=== PATIENT | female | born 1955 | race Caucasian/White ===

== ENCOUNTER 2018-03-12 09:30 | Outpatient (CLI) | payer OTHER, SELFPAY ==
--- NOTE | 2018-03-12 10:22 | W.PREOPHP ---
Date of service: 03/12/18 Assessment and Plan (1) Rotator cuff tendonitis: Current visit: Yes Status: Chronic Left rotator cuff tendinitis Plan: Left shoulder arthroscopy with possible manipulation. Details of surgery were discussed with patient as well as risks and pertinent anatomy, all questions were answered. History of Present Illness Chief Complaint: Left shoulder injury Narrative: Nia comes in today for left shoulder pain. She states that she had an injury back in July where she slipped and fell on the ice landing on her left shoulder. Since then she has continued to have left shoulder pain and decreased range of motion. She has trouble lifting her arm away from her body due to pain. She does have pain as well when she sleeps, and also keeps her from sleep. She has tried conservative treatment including injections and physical therapy. She states that physical therapy in fact made the left shoulder pain worse. Nia then got an MRI of the left shoulder which did show some tendinitis of the rotator cuff, did not show any nisreen tears of the rotator cuff. At this point since Nia has tried and failed conservative treatment Dr. Vee suggests a left shoulder arthroscopy with possible manipulation. Nia agrees with this plan and is anxious to proceed. Pertinent Surgical Information Patient states that she has had her umbilical hair hernia surgery here at [facility], as well as her tonsillectomy. She states that she does wake up from anesthesia with severe nausea and vomiting. Review of Systems Constitutional Denies fatigue and Denies fever(s) ENT Denies dizziness and Denies sore throat Cardiovascular Denies chest pain, Denies irregular heart rhythm, Denies palpitations and Denies dyspnea on exertion Respiratory Denies cough and Denies dyspnea on exertion Gastrointestinal Denies abdominal pain, Denies hematochezia and Denies nausea Genitourinary Denies hematuria and Denies dysuria Neurologic Denies dizziness Endocrine Denies fatigue and Denies palpitations [facility] Medical History Anxiety (Chronic) Essential hypertension Insomnia Social History Smoking/Tobacco Use Status: Former Tobacco Use how long ago did patient quit smokin years Surgical History Anal papilla excision BILAT WRIST Colonoscopy - IV Sedation Hernia Repair, Incisional Sigmoidoscopy Tonsillectomy (05/22/17) Meds Home Medications Medication Instructions Recorded Confirmed Type black cohosh root extract 40 mg PO DAILY 08/31/12 03/12/18 History evening primrose oil 500 mg PO DAILY 08/31/12 03/12/18 History sertraline 100 mg PO DAILY tab-cap 08/31/12 03/12/18 History trazodone 300 mg PO HS tab-cap 08/31/12 03/12/18 History uocuqkhm-tjsq-ugsnmr-hyalur ac 1 tab PO DAILY 10/01/12 03/12/18 History [Joint Support] vitamin B complex 1 ea PO DAILY 01/02/13 03/12/18 History calcium carbonate 500 mg PO DAILY 02/04/14 03/12/18 History spironolactone 25 mg PO DAILY tab-cap 04/24/17 03/12/18 History L.acidoph, paracasei,B. lactis 1 ea PO DAILY 05/15/17 03/12/18 History polyethylene glycol 3350 17 gm PO PRN PRN 05/15/17 03/12/18 History gabapentin 300 mg PO HS 05/22/17 03/12/18 History Allergies Allergy/AdvReac Type Severity Reaction Status Date / Time lorazepam Allergy Severe HYPERACTIVITY, Unverified 03/12/18 09:45 HALLUATIONS latex Allergy Mild RASH Unverified 03/12/18 09:45 amoxicillin trihydrate Allergy VOMITING Unverified 03/12/18 09:45 [From Augmentin] potassium clavulanate Allergy VOMITING Unverified 03/12/18 09:45 [From Augmentin] ANTIHISTAMINES - MULTIPLE AdvReac Mild HYPER Uncoded 03/12/18 09:45 Exam [facility] Head: normocephalic and atraumatic General nose exam: no nasal discharge Throat: uvula midline, no uvular edema and other (soft palate rises symetrically, no erythema) Eyes Conjunctivae: conjunctivae normal Sclera: sclerae normal Pupils: PERRL Resp Effort & Inspection: normal respiratory effort Auscultation: clear to auscultation bilaterally and no wheezes Cardio Rate: regular rate Rhythm: regular rhythm Heart Sounds: S1 normal, S2 normal and no murmurs GI Palpation: soft, no hepatosplenomegaly and nontender Auscultation: normal bowel sounds
--- NOTE | 2018-03-12 10:48 | HPE_ITS ---
Date of service: 03/12/18 Assessment and Plan (1) Rotator cuff tendonitis: Current visit: Yes Status: Chronic Left rotator cuff tendinitis Plan: Left shoulder arthroscopy with possible manipulation. Details of surgery were discussed with patient as well as risks and pertinent anatomy, all questions were answered. History of Present Illness Chief Complaint: Left shoulder injury Narrative: Nia comes in today for left shoulder pain. She states that she had an injury back in July where she slipped and fell on the ice landing on her left shoulder. Since then she has continued to have left shoulder pain and decreased range of motion. She has trouble lifting her arm away from her body due to pain. She does have pain as well when she sleeps, and also keeps her from sleep. She has tried conservative treatment including injections and physical therapy. She states that physical therapy in fact made the left shoulder pain worse. Nia then got an MRI of the left shoulder which did show some tendinitis of the rotator cuff, did not show any nisreen tears of the rotator cuff. At this point since Nia has tried and failed conservative treatment Dr. Vee suggests a left shoulder arthroscopy with possible manipulation. Nia agrees with this plan and is anxious to proceed. Pertinent Surgical Information Patient states that she has had her umbilical hair hernia surgery here at [facility], as well as her tonsillectomy. She states that she does wake up from anesthesia with severe nausea and vomiting. Review of Systems Constitutional Denies fatigue and Denies fever(s) ENT Denies dizziness and Denies sore throat Cardiovascular Denies chest pain, Denies irregular heart rhythm, Denies palpitations and Denies dyspnea on exertion Respiratory Denies cough and Denies dyspnea on exertion Gastrointestinal Denies abdominal pain, Denies hematochezia and Denies nausea Genitourinary Denies hematuria and Denies dysuria Neurologic Denies dizziness Endocrine Denies fatigue and Denies palpitations [facility] Medical History Anxiety (Chronic) Essential hypertension Insomnia Social History Smoking/Tobacco Use Status: Former Tobacco Use how long ago did patient quit smokin years Surgical History Anal papilla excision BILAT WRIST Colonoscopy - IV Sedation Hernia Repair, Incisional Sigmoidoscopy Tonsillectomy (05/22/17) Meds Home Medications Medication Instructions Recorded Confirmed Type black cohosh root extract 40 mg PO DAILY 08/31/12 03/12/18 History evening primrose oil 500 mg PO DAILY 08/31/12 03/12/18 History sertraline 100 mg PO DAILY tab-cap 08/31/12 03/12/18 History trazodone 300 mg PO HS tab-cap 08/31/12 03/12/18 History mwqumiyk-alpm-cwmerr-hyalur ac 1 tab PO DAILY 10/01/12 03/12/18 History [Joint Support] vitamin B complex 1 ea PO DAILY 01/02/13 03/12/18 History calcium carbonate 500 mg PO DAILY 02/04/14 03/12/18 History spironolactone 25 mg PO DAILY tab-cap 04/24/17 03/12/18 History L.acidoph, paracasei,B. lactis 1 ea PO DAILY 05/15/17 03/12/18 History polyethylene glycol 3350 17 gm PO PRN PRN 05/15/17 03/12/18 History gabapentin 300 mg PO HS 05/22/17 03/12/18 History Allergies Allergy/AdvReac Type Severity Reaction Status Date / Time lorazepam Allergy Severe HYPERACTIVITY, Unverified 03/12/18 09:45 HALLUATIONS latex Allergy Mild RASH Unverified 03/12/18 09:45 amoxicillin trihydrate Allergy VOMITING Unverified 03/12/18 09:45 [From Augmentin] potassium clavulanate Allergy VOMITING Unverified 03/12/18 09:45 [From Augmentin] ANTIHISTAMINES - MULTIPLE AdvReac Mild HYPER Uncoded 03/12/18 09:45 Exam [facility] Head: normocephalic and atraumatic General nose exam: no nasal discharge Throat: uvula midline, no uvular edema and other (soft palate rises symetrically , no erythema) Eyes Conjunctivae: conjunctivae normal Sclera: sclerae normal Pupils: PERRL Resp Effort & Inspection: normal respiratory effort Auscultation: clear to auscultation bilaterally and no wheezes Cardio Rate: regular rate Rhythm: regular rhythm Heart Sounds: S1 normal, S2 normal and no murmurs GI Palpation: soft, no hepatosplenomegaly and nontender Auscultation: normal bowel sounds
== END 2018-03-12 09:50 ==
PROVIDERS: PCP Physician Assistant Medical; Visit Provider Student in an Organized Health Care Education/Training Program
DX: M75.102 Unspecified rotator cuff tear or rupture of left shoulder, not specified as traumatic (principal); M75.02 Adhesive capsulitis of left shoulder; Z01.818 Encounter for other preprocedural examination
CPT/HCPCS: NC

== ENCOUNTER 2018-03-15 06:23 | Day surgery (SDC) | payer OTHER, SELFPAY ==
[2018-03-15 06:29] VITALS: BP 146/82; PULSE 79; RESP 18; TEMP 36.1; O2SAT 98
[2018-03-15] MEDS: Lactated Ringers 1,000 ML 80 ML IV (07:05)
[2018-03-15] MEDS: Scopolamine 1 MG/3 DAYS PATCH TD (07:38)
[2018-03-15] MEDS: Bupivacaine LIPOSOME/PF 133 MG/10 ML VIAL IJ ×2 (08:25→09:23)
[2018-03-15] MEDS: Bupivacaine 0.5% Pres-Free 30 ML VIAL ×2 (08:25→09:22)
--- NOTE | 2018-03-15 10:14 | W.PM.DSUDISC ---
Discharge Plan Disposition Patient Disposition: HOME Condition: Good Discharge Details Reason For Visit: (L) RTC TENDONITITIS,ADHESIVE CAPSULITIS Attending Provider: Jaquan Vee Primary Care Provider: Monster Rocha Home Meds and New Rx's Prescriptions: New acetaminophen 500 mg capsule 1,000 mg PO Q8H PRN (Reason: pain) Qty: 90 RF: 0 ibuprofen 600 mg tablet 600 mg PO TID PRN (Reason: pain) Qty: 90 RF: 3 oxycodone 5 mg tablet 5 mg PO Q4H Qty: 18 RF: 0 Continue evening primrose oil 500 MG capsule 500 mg PO DAILY RF: 0 sertraline 100 MG tablet 100 mg PO DAILY RF: 0 trazodone 100 MG tablet 300 mg PO HS RF: 0 black cohosh root extract 40 MG capsule 40 mg PO DAILY RF: 0 vitamin B complex 1 EACH capsule 1 ea PO DAILY RF: 0 spironolactone 25 MG tablet 25 mg PO DAILY RF: 0 qeijsoik-klmi-cilvtw-hyalur ac [Joint Support] 1 EACH capsule 1 tab PO DAILY RF: 0 calcium carbonate 500 MG tablet,chewable 500 mg PO DAILY RF: 0 polyethylene glycol 3350 17 GM powder in packet 17 gm PO PRN PRNRF: 0 L.acidoph, paracasei,B. lactis 1 EACH capsule 1 ea PO DAILY RF: 0 gabapentin 100 MG capsule 300 mg PO HS RF: 0 Discharge Instructions Additional Instructions: Start moving as soon as possible, beginning with pendulums and then wall and table slides. You should start PT on Monday unless pain is too much. You may wear the abduction pillow part of your sling for comfort but is not necessary. Stand Alone Forms: Mariusz Shoulder Arthro Equipment/Supplies: Sling Activity:: Activity as Tolerated Remove Dressings/Wound Care:: 72 hours Shower/Bathe:: 72 hours Discharge Orders Discharge Orders: Discharge Order (Routine); Ordered 03/15/18 Ordered By: Jaquan Vee DS: Diagnosis Discharge Diagnosis (1) Left rotator cuff tear: Status: Acute (2) AC (acromioclavicular) arthritis: Status: Acute
[2018-03-15 10:29] VITALS: BP 129/63; PULSE 72; RESP 16; TEMP 36.6; O2SAT 97
[2018-03-15 10:34] VITALS: BP 140/72; PULSE 69; RESP 16; TEMP 36.6; O2SAT 98
[2018-03-15 10:39] VITALS: BP 144/78; PULSE 71; RESP 16; TEMP 36.5; O2SAT 98
[2018-03-15 10:54] VITALS: BP 139/74; PULSE 65; RESP 14; TEMP 36.4; O2SAT 98
[2018-03-15 11:44] VITALS: BP 140/81; PULSE 66; RESP 16; TEMP 36.7; O2SAT 97
--- NOTE | 2018-03-15 21:18 | W.PM.OP ---
Date of service: 03/15/18 Time of Service: :18 Operative Note DATE OF PROCEDURE: 03/15/18 PRE-OP DIAGNOSIS: Left Rotator Cuff Tendinitis, Adhesive Capsulitis, AC Arthritis POST-OP DIAGNOSIS: other (Partial left bursal-sided rotator cuff tear, adhesive capsulitis, and AC arthritis) PROCEDURE: Left distal clavicle excision, extensive debridement of labrum, rotator cuff, and subacromial bursa, and subacromial decompression. SURGEON: Jaquan Vee PATIENT RELATIONS LIAISON: Francine Velazquez ANESTHESIA: GETA and regional ESTIMATED BLOOD LOSS: 10 PATHOLOGY: none sent COMPLICATIONS: None Patient was transported to: PACU Patient's condition: stable Indications: Pat is a 63-year-old who has had persistent left shoulder pain. She has tried conservative treatment options including physical therapy, anti-inflammatories, and injections. However, she continues she also showed I reviewed the risk of the procedure to include bleeding, infection, pain, stiffness, damage to nerves and vessels, weakness. Despite these risks, she elects to proceed. Findings: There is notable arthritis of the distal clavicle. A dorsal osteophyte was also seen. A 1 cm resection wedge was made. There is also arthritic changes seen within the anterior glenohumeral joint. This is primarily of the glenoid component. There were grade 3 changes in the anterior glenoid. There is some notable disruption of the anterior labrum from about 9 to 11:00. Otherwise the labrum was relatively intact. There is some minimal inflammation seen at the biceps anchor but no tearing or lift off of the superior labrum. The articular sided rotator cuff was inspected and showed no tearing. Biceps tendon has some minor inflammation along its course but no tearing. The subacromial space there was a large bursa. The bursal sided rotator cuff was inspected and did show an area approximately 6 mm in width and that was torn at the posterior margin of the supraspinatus. It was torn for a width of about 4-5 mm. This was debrided down. Procedure Description: Pat was greeted in the preoperative holding area. Her identity was confirmed and the correct site was identified and marked. Consent was reviewed with the patient and signed. History and physical was updated. She was first taken back to the PACU where an interscalene regional block was administered. Following the regional block, she was taken to the operating room. She is placed in the supine position. All bony prominences were well-padded. A general anesthetic was administered. She was then repositioned into the beachchair position. The head was kept in a neutral position with a foam head chopper. The left arm was prepped with ChloraPrep and draped in a standard fashion. Prophylactic antibiotics in the form of cefazolin were given. A timeout was performed for safe surgery. I first started with the distal clavicle excision. A 2-1/2 cm incision was made within Kee's lines overlying the AC joint. The skin was incised sharply. The deep tissue was dissected with electrocautery. The clavipectoral fascia was then longitudinally over the AC joint. The fascia was elevated subperiosteally. This exposed the distal clavicle. There is a large dorsal osteophyte seen. There is also arthritic change seen within the AC joint. Using oscillating saw a 1 cm wedge was resected from the distal clavicle. This is inspected. A rasp was used to smooth the inferior and posterior aspects. The wound was irrigated. The clavipectoral fascia was then closed with 0 Vicryl. The wound was thoroughly irrigated. Deeper tissues were closed with a 2-0 Vicryl. The skin was closed with 3-0 Monocryl. The surgical site was then injected with a mixture of 0.5% bupivacaine and 10 cc of Exparel. Attention was then turned to the arthroscopy portion of the case. Using a spinal needle through a standard posterior position the glenohumeral joint was insufflated with 20 cc of normal saline. A standard posterior portal was made. An arthroscope was inserted into the shoulder without difficulty and atraumatically. There is a lot of inflammation seen within the shoulder itself. The interval between the biceps tendon and the subscapularis was identified using a spinal needle anterior portal was made. A 6.5 mm cannula was inserted. Diagnostic arthroscopy was performed. This demonstrated some grade III chondromalacia in the anterior glenoid. There is also tearing of the anterior labrum. There is thickening of the rotator interval and the synovium in the anterior shoulder. There is inflammatory change seen around the biceps but no tearing. No tearing of the anchor of the labrum. The superior labrum was probed and did not elevate off the superior glenoid. There is no tearing of the subscapularis. No articular tearing of the supraspinatus or infraspinatus. The labrum was debrided anteriorly. The biceps was withdrawn into the wound and only showed some mild inflammatory changes. The anterior synovium was transected with electrocautery all the way to the 6 o'clock position. The rotator interval was fully opened with electrocautery. Attention was then turned to the subacromial portion of the case. Scope was removed from the good humeral joint and then inserted into the subacromial space. The inferior portion of the acromion was skeletonized with blunt cautery. This exposed the anterolateral spur and the CA ligament. The bursa was resected. There was dense bursa throughout the subacromial portion of the case. A full debridement was performed and the rotator cuff was inspected from anterior to posterior. It was noted in the posterior portion of supraspinatus tendon insertion on the tuberosity there is some partial tearing. This was debrided down to define anatomy which showed a partial bursal sided tear measuring approximately 6-7 mm in width and approximately 4-5 mm in depth. Given that it was less than half the footprint I did not perform a repair. Using a posterior slope technique the anterolateral corner of the acromion was raised in plane with the posterior slope of the acromion. The wounds and irrigated. The scope was removed from the shoulder. The wounds were closed with 4-0 Vicryl. They were dressed with Steri-Strips, gauze, ABD padding and Mediport tape. She is placed into a sling. In any case all counts are correct. She is transferred back to the PACU in stable condition.
== END 2018-03-15 12:35 | disposition home or self-care (01) ==
PROVIDERS: PCP Physician Assistant Medical; Visit Provider Student in an Organized Health Care Education/Training Program
PROC: (CPT 29805; principal; 2018-03-15 09:15)
PROC: (CPT 23700; 2018-03-15 09:15)
DX: M75.81 Other shoulder lesions, right shoulder (principal); M19.011 Primary osteoarthritis, right shoulder; M75.02 Adhesive capsulitis of left shoulder; M75.112 Incomplete rotator cuff tear or rupture of left shoulder, not specified as traumatic; I10 Essential (primary) hypertension
CPT/HCPCS: 23120; 29826; 76942; J0131; J0690; J1100; J1885; J2250; J2405; L3670

== ENCOUNTER 2018-06-21 08:20 | Outpatient (REF) | payer OTHER, SELFPAY ==
[2018-06-21 21:43] LABS: ALT 20 U/L (12-78); AST 14 U/L (15-37); Albumin 3.9 g/dL (3.4-5.0); Alkaline Phosphatase 93 U/L (46-116); Anion Gap 7.8 mmol/L (3-11); BUN 18 mg/dL (7-18); Bilirubin, Total 0.5 mg/dL (0.2-1.0); CO2 30.2 mmol/L (21.0-32.0); CREATININE 0.96 mg/dL (0.55-1.02); Calcium 8.9 mg/dL (8.5-10.1); Chloride 101 mmol/L (98-107); Cholesterol 220 mg/dL (50-200); Estimated GFR 58.89 (mL/min/1.73m2); Glucose 99 mg/dL (70-100); HDL Cholesterol 70 mg/dL (40-60); LDL CHOLESTEROL 120 mg/dL (<100); Potassium 4.2 mmol/L (3.5-5.1); Sodium 139 mmol/L (136-145); Total Protein 7.2 g/dL (6.4-8.2); Triglyceride 243 mg/dL (30-150)
== END 2018-06-21 08:40 ==
LOC: NCHCN 08:20
PROVIDERS: PCP Physician Assistant Medical; Visit Provider Physician Assistant Medical
DX: I10 Essential (primary) hypertension (principal)
CPT/HCPCS: 80053; 80061; 83721

== ENCOUNTER 2018-10-15 06:59 | Day surgery (SDC) | payer OTHER, SELFPAY ==
--- NOTE | 2018-10-15 06:50 | COLE_ITS ---
Date of service: 10/15/18 Time of Service: 08:05 Colonoscopy Report Date of procedure: 10/15/18 Pre-op diagnosis general: Colon Cancer Screening/ Hx of polyps Post-op diagnosis procedure note: other (cecal Polyps and ascending polyp) Procedure: Colonoscopy with polypectomy by cold forceps Surgeon: Sneha Voss Anesthesia proc note operative: other (General/ ASA 2/ Lion Patton, CERTIFIED APPLIANCE SERVICE TECHNICIAN) Estimated blood loss (mL): 3 Pathology: other (cecal polyp, ascending polyp) Complications: None Disposition: no change Indications: Mrs Wilkinson is a pleasant 63 year old who was seen in the office for a Screening Colonoscopy. Her last Colonoscopy was in 2012 and she was noted to have Hyperplastic polyps. Risks, benefits and complications have been reviewed. Complications include but are not limited to bleeding, pain, perforation, missed small lesion/polyp, sore throat, aspiration and adverse reaction to the medications. Questions were entertained and answered to their satisfaction and they wished to proceed. No guarantees were given or implied. Prep: Miralax/Dulcolax Procedure Start Time: 08:05 Procedure End Time: 08:33 Retraction Time: 20 minutes Findings: Sessile polyps in the cecum and ascending colon Procedure Description: After informed consent was obtained the patient was taken to the procedure room and placed in a left decubitous position. Monitors were applied and a time out was done. The patients name, date of , procedure, allergies to medications and metal in their body was reviewed. The patient was then sedated. Once sedated and comfortable a rectal exam was done. External exam was normal. Internal exam revealed a normal sphincter tone and no palpable masses. The scope was then introduced and retro-flexed. Hemorrhoidal skin tags were identified. No polyps or masses were noted. The scope was then advanced to the cecum without difficulty. The TI and appendiceal orifice were identified. The prep was adequate. The scope was then slowly retracted over 20 minutes back into the rectum. Polyps were removed in the cecum and ascending colon with cold forceps. The scope was removed and the patient was woken up and taken back to Same day surgery in stable condition. The patient tolerated the procedure well and there were no immediate complications. Follow up: The patient should follow up in 3-5 years unless they develop changes in bowel habits or other new gastrointestinal complaints.
--- NOTE | 2018-10-15 06:53 | W.PM.DSUDISC ---
Discharge Plan Disposition Patient Disposition: HOME Condition: Good Discharge Details Reason For Visit: Colon Cancer Screening Attending Provider: Sneha Voss Primary Care Provider: Monster Rocha Home Meds and New Rx's Prescriptions: Continued albuterol sulfate [ProAir HFA] 90 mcg/actuation HFA aerosol inhaler 2 puff IH Q6H PRNRF: 0 evening primrose oil 500 MG capsule 500 mg PO DAILY RF: 0 sertraline 100 MG tablet 100 mg PO DAILY RF: 0 trazodone 100 MG tablet 300 mg PO HS RF: 0 black cohosh root extract 40 MG capsule 40 mg PO DAILY RF: 0 vitamin B complex 1 EACH capsule 1 ea PO DAILY RF: 0 spironolactone 25 MG tablet 25 mg PO DAILY RF: 0 hshmzfzc-dufc-kzbvkk-hyalur ac [Joint Support] 1 EACH capsule 1 tab PO DAILY RF: 0 calcium carbonate 500 MG tablet,chewable 500 mg PO DAILY RF: 0 gabapentin 100 MG capsule 300 mg PO HS RF: 0 Discontinued polyethylene glycol 3350 17 gram/dose powder 238 g PO ONCE Qty: 238 RF: 0 bisacodyl [Dulcolax (bisacodyl)] 5 mg tablet,delayed release (DR/EC) 5 mg PO ONCE Qty: 4 RF: 0 No Action polyethylene glycol 3350 17 GM powder in packet 17 gm PO PRN PRNRF: 0 Discharge Instructions Instructions: Colonoscopy (DC), Colorectal Polyps (DC), Hemorrhoidectomy (DC), Hemorrhoids (DC) Additional Instructions: Findings: Hemorrhoidal skin tags 2 polyps Follow up: 3-5 years Please call if you develop: fevers >101.5 Nausea or Vomiting Abdominal pain that is not transient DAY SURGERY UNIT POST COLONOSCOPY INSTRUCTIONS 1. Because there will be medication in your system for the next 24 hours, you may feel a little sleepy. Your coordination will be affected. Therefore: a. Do not drive or operate dangerous equipment for 24 hours. b. Do not drink alcohol beverages for 24 hours (not even beer). c. Plan to go home and rest for the day. 2. Generally there are no restrictions on your activity after a day or so has gone by, but you may feel a bit fatigued for a few days. 3 After you arrive home you may have a light meal and return to a normal diet as you can tolerate it without feeling sick to your stomach. 4. After surgery, you may feel pain or discomfort. This should be only transient, but if it persists please contact your doctor. 5. If there are any questions regarding the findings of your procedure, please feel free to contact your doctor. 6. If you are unable to contact your doctor with a problem, contact the hospital at [phone]. 7. Continue all your regular medications unless directed otherwise. I understand the above instructions and have no questions. Signature of Patient or Responsible Adult Escort Date/Time Name of Responsible Adult Escort Signature of Nurse Date/Time Referrals: Sneha Voss MD [ [facility] STAFF PHYSICIAN] - (as needed to discuss internal hemorrhoid removal if patient wants) Activity:: Activity as Tolerated Diet:: As Tolerated Discharge Orders Discharge Orders: Discharge Order (Routine); Ordered 10/15/18 Ordered By: Sneha Voss DS: Diagnosis Discharge Diagnosis (1) S/P colonoscopy: Status: Acute (2) Colorectal polyps: Status: Acute
[2018-10-15 07:29] VITALS: BP 147/85; PULSE 80; RESP 16; TEMP 36.5; O2SAT 98
[2018-10-15] MEDS: Lactated Ringers 1,000 ML 80 ML IV (07:49)
--- NOTE | 2018-10-15 08:16 | BOWEL_PTH ---
PATIENT: Nia Wilkinson LOC: [facility] U#:[id number] AGE/SX: 63/F ROOM: RE10/15/[address]: Sneha Voss MD : 1955 BED: DIS: 10/15/2018 SPEC #: [id number] RECD: 10/15/18 12:46 STATUS: SHAWN REQ #: [id number] BRET: 10/15/18 08:[address]: Sneha Voss DEPT: Surgical Specimen RECD BY: Vera Aggarwal ENTERED: 10/15/18 12:46 SP TYPE: Bowel OTHR DR: Monster Rocha Tissues: 1 - BIOPSY BOWEL 2 - BIOPSY BOWEL Procedures: GROSS AND MICRO LEVEL 4 Comments: [id number]
[2018-10-15 09:10] VITALS: BP 140/86; PULSE 61; RESP 16; TEMP 36.4; O2SAT 100
== END 2018-10-15 09:40 | disposition home or self-care (01) ==
LOC: SUR 06:59
PROVIDERS: PCP Physician Assistant Medical; Visit Provider Surgery
PROC: 0DJD8ZZ Inspection of Lower Intestinal Tract, Via Natural or Artificial Opening Endoscopic (ICD-10-PCS; CPT 45378; principal; 2018-10-15 08:00)
DX: Z12.11 Encounter for screening for malignant neoplasm of colon (principal); D12.0 Benign neoplasm of cecum; K63.5 Polyp of colon; Z87.19 Personal history of other diseases of the digestive system; I10 Essential (primary) hypertension
CPT/HCPCS: 45380; 88305

== ENCOUNTER 2018-11-27 21:59 | Outpatient (REF) | payer OTHER, SELFPAY ==
[2018-11-29 13:05] LABS: Specimen Description VAGINAL LESION; Varicella Zoster DNA Result Negative
[2018-11-29 13:09] LABS: HSV 1 DNA Result Negative; HSV 2 DNA Result Negative; Specimen Description VAGINAL LESION
== END 2018-11-27 22:19 ==
LOC: NCHCN 21:59
PROVIDERS: PCP Physician Assistant Medical; Visit Provider Nurse Practitioner Family
DX: N89.8 Other specified noninflammatory disorders of vagina (principal); Z11.59 Encounter for screening for other viral diseases
CPT/HCPCS: 87252; 87529; 87798

== ENCOUNTER 2019-03-06 14:54 | Outpatient (REF) | payer OTHER, SELFPAY ==
--- NOTE | 2019-03-06 09:30 | PAPFT_PTH ---
PATIENT: Nia Wilkinson LOC: [facility] #:[id number] AGE/SX: 63/F ROOM: RE03/06/[address]: Monster Rocha : 1955 BED: DIS: 03/06/2019 SPEC #: [id number] RECD: 03/07/19 12:29 STATUS: SHAWN RESujey #: [id number] BRET: 03/06/19 09:[address]: Monster Rocha DEPT: [facility] Cytology RECD BY: Vera Aggarwal Tissues: 1 - CX/ENDOCX FOR PAP SMEARS Procedures: PAP THIN PREP/UVM Screening HPV DNA PROBE Comments: [id number]
== END 2019-03-06 15:14 ==
LOC: NCHCN 14:54
PROVIDERS: PCP Physician Assistant Medical; Visit Provider Physician Assistant Medical
DX: Z12.4 Encounter for screening for malignant neoplasm of cervix (principal); Z11.51 Encounter for screening for human papillomavirus (HPV)
CPT/HCPCS: 88142; 87624

== ENCOUNTER 2019-04-03 01:27 | Outpatient (CLI) | payer OTHER, SELFPAY ==
--- NOTE | 2019-04-03 10:46 | DI.RAD_ITS ---
EXAM: XR KNEE LT 3V AP,LAT,RUDY INDICATION: BILATERAL KNEE PAIN, M25.569. COMPARISON: XR KNEE RT 3V AP,LAT,RUDY from 04/03/2019 TECHNIQUE: 2D digital imaging was performed. FINDINGS: Bony structures are normally mineralized. Joint space is intact. There is no evidence of a joint effu tarah and nothing to suggest a fracture or dislocation.
--- NOTE | 2019-04-03 10:47 | DI.RAD_ITS ---
EXAM: XR KNEE RT 3V AP,LAT,RUDY INDICATION: BILATERAL KNEE PAIN, M25.569. COMPARISON: LEFT KNEE 3 VIEW COMPLETE from 04/24/2017 TECHNIQUE: 2D digital imaging was performed. FINDINGS: The bony structures are normally mineralized. There may be slight narrowing of the tibiofemoral joint . Minimal periarticular hypertrophic spurring is apparent. There is no evidence of a joint effusion. IMPRESSION: Mild DJD is demonstrated.
--- NOTE | 2019-04-03 11:42 | DI.MAMMO_ITS ---
EXAM: MAMMO SCREENING CLINICAL HISTORY: SCREENING, HEALTH MAINTENANCE EXAM, Z00.8. TECHNIQUE: Mammograms were interpreted according to the usual protocol including computer analysis w [employer] CAD system, tomosynthesis and C-view imaging. FINDINGS: The breasts are heterogeneously dense. No dominant mass or clumped microcalcification is identified i n either breast. Current examination is compared with previous examinations including May 2017 a nd there has been no gross interval change in appearance in comparison with previous studies. IMPRESSION: No specific evidence of malignancy at this time. Routine screening examinations are suggested at year ly intervals due to the family history of breast carcinoma. Category 1. Breast density, category C. BI-RADS Cat 1 - Negative. Breast Density - Category C - Heterogeneously dense.
== END 2019-04-03 01:47 ==
PROVIDERS: PCP Physician Assistant Medical; Visit Provider Physician Assistant Medical
DX: M25.561 Pain in right knee (principal); M25.562 Pain in left knee; M17.11 Unilateral primary osteoarthritis, right knee; Z00.00 Encounter for general adult medical examination without abnormal findings; Z12.31 Encounter for screening mammogram for malignant neoplasm of breast; Z80.3 Family history of malignant neoplasm of breast
CPT/HCPCS: 73562; 77063; 77067

== ENCOUNTER 2019-04-16 01:27 | Outpatient (CLI) | payer OTHER, SELFPAY ==
--- NOTE | 2019-04-16 11:15 | DI.DEXA_ITS ---
EXAM: XR DEXA BONE DENSITY W/WO JAY INDICATION: GERMAN MAINTENANCE EXAM Z00.8. COMPARISON: 2005 and 2013 TECHNIQUE: The exam was performed according to the usual protocol FINDINGS: The JAY image shows no evidence of compression fractures. The bone mineral density measurements of the lumbar spine correspond to total T-score -0.2, in the normal range. This is not significantly ch anged from the previous exam of 2013. This represents a 3 percent decrease when compared with 2005. The bone mineral density measurements of the left hip correspond to a total T-score of -0.1 and a fem oral neck T-score of -0.2, in the normal range. This is not significantly changed from the previous exams. The right forearm bone mineral density measurements correspond to a T-score of the distal 3rd of 0.5, in the normal range. The forearm was not analyzed on the previous exams. IMPRESSION: Normal bone mineral density.
== END 2019-04-16 01:47 ==
PROVIDERS: PCP Physician Assistant Medical; Visit Provider Physician Assistant Medical
DX: Z00.00 Encounter for general adult medical examination without abnormal findings (principal); Z13.820 Encounter for screening for osteoporosis
CPT/HCPCS: 77080

== ENCOUNTER 2019-05-27 10:27 | Outpatient (REF) | payer OTHER, SELFPAY ==
[2019-05-27 20:58] LABS: Hemoglobin A1C 5.9 % (4.5-6.2)
[2019-05-27 21:00] LABS: Anion Gap 8.7 mmol/L (3-11); BUN 13 mg/dL (7-18); CO2 29.3 mmol/L (21.0-32.0); CREATININE 0.87 mg/dL (0.55-1.02); Calcium 9.4 mg/dL (8.5-10.1); Calculated LDL 130 mg/dL; Chloride 100 mmol/L (98-107); Cholesterol 232 mg/dL (<200); Glucose 97 mg/dL (74-106); HDL Cholesterol 59 mg/dL (40-60); Potassium 4.8 mmol/L (3.5-5.1); Sodium 138 mmol/L (136-145); Triglyceride 215 mg/dL (<150)
== END 2019-05-27 10:47 ==
LOC: NCHCN 10:27
PROVIDERS: PCP Physician Assistant Medical; Visit Provider Physician Assistant Medical
DX: I10 Essential (primary) hypertension (principal); R73.01 Impaired fasting glucose
CPT/HCPCS: 80048; 80061; 83036

== ENCOUNTER 2019-06-06 00:35 | Outpatient (CLI) | payer OTHER, SELFPAY ==
--- NOTE | 2019-06-06 10:29 | DI.MRI_ITS ---
EXAM: MR LUMBAR SPINE WO CLINICAL HISTORY: LOW BACK PAIN, M54.5. TECHNIQUE: Multiplanar multisequence MRI was performed. COMPARISON: LUMBAR SPINE COMPLETE from 02/04/2014 FINDINGS: T12-L1 and L1-2 levels are unremarkable. At L2-3, there is mild disc bulging and disc desiccation. There are mild facet degenerative changes. There is no significant neural foraminal narrowing or central canal stenosis. At L3-4, there is mild broad-based disc bulging. There are facet degenerative changes greater on the left. There is no significant neural foraminal narrowing. There is mild central canal stenosis. At L4-5, there is marked loss of disc height, small endplate osteophytes and degenerative signal rachel ges in the endplates. There are mild facet degenerative changes. There is ligamentous hypertrophy c reating mild central canal stenosis, the transverse dimension of the canal. There is mild neural for aminal narrowing. At L5, the disc appears intact. There are mild facet degenerative changes but no neural foraminal na rrowing or central canal stenosis. Conus medullaris terminates at T12-L1. The aorta is normal in di ameter. IMPRESSION: Degenerative disc changes and facet degenerative changes causing mild central canal stenosis at L3-4 and L4-5. Mild neural foraminal narrowing is seen at L4-5. There is no evidence of a disc herniatio n.
== END 2019-06-06 00:55 ==
PROVIDERS: PCP Physician Assistant Medical; Visit Provider Physician Assistant Medical
DX: M54.5 Low back pain (principal); M51.36 Other intervertebral disc degeneration, lumbar region; M48.061 Spinal stenosis, lumbar region without neurogenic claudication
CPT/HCPCS: 72148

== ENCOUNTER 2019-08-21 09:13 | Outpatient (CLI) | payer OTHER, SELFPAY ==
--- NOTE | 2019-08-21 06:00 | DI.RAD_ITS ---
EXAM: XR PAIN CLINIC LUMBAR SP 2V CLINICAL HISTORY: Dx: Lumbar Spondylosis. TECHNIQUE: Fluoroscopy was provided for the referring physician for guidance with performing injecti on procedure. COMPARISON: No exams were available for comparison FINDINGS: Please see procedure note for details. Fluoro Time 74.2
--- NOTE | 2019-08-21 09:26 | PDOC.PAIN ---
Pain Clinic Procedure Note Procedure Note Procedure Note: Lumbar/Sacral Medial Branch Blocks TOBIAS DAVIS has been referred to the [facility] for lumbar/sacral medial branch blocks. COMMENTS: patient was evaluated by Ms Rebeca Estebanmac MELÉNDEZ for chronic axial back pain. Pre-operative diagnosis: lumbar spondylosis Post-operative diagnosis: same as above Patient was interviewed and the medical record reviewed. There were no medical, pharmacologic, radiographic or other structural contraindications to attempting fluoroscopically guided local anesthetic lumbar/sacral medial branch blocks. Risks and expected side effects as well as potential benefit of the procedure were reviewed and voiced concerns addressed. The printed consent form was signed and witnessed. Standard time-out procedure was performed. Patient was placed in the prone position on the fluoroscopy table and automated blood pressure cuff and pulse oximeter applied. The skin entry points for approaching the anatomic target points of the segmental medial branches of bilateral L3, L4, L5-DR were identified with anfluoroscopy and marked. Following thorough Chlorhexadine preparation of the skin and draping and 1% lidocaine infiltration of the skin entry points and subcutaneous tissues, a 22 gauge spinal needle was placed under fluoroscopic guidance down on to the target point for each respective segmental medial branch.Position was confirmed in A/P, oblique and lateral views with 0.25ml of omnipaque 240. Then 0.5ml 0.5% Bupivacaine was injected. Vital signs were stable throughout the procedure and were as recorded in the docflowsheet by the nursing staff. Follow up plans and appointments were discussed and was instructed to keep careful note of how the usual pain was modified by these injections. Specifically was asked to keep a pain diary for the next 24 hours using a numeric pain scale of 0-10 and report these results at the follow-up visit. Post procedure instruction was given as documented in the nursing documentation and having met discharge criteria. Patient was discharged from the [facility]. Based on the medial branches blocked today, if the patient has adequate relief and we are able to proceed to radiofrequency ablation, the treatment should result in the denervation of the bilateral L4-5 and L5-S1 facets. We would expect to denervate a total of 4 facets during the radiofrequency ablation. COMMENTS: patient tolerated procedure well. Pre-procedure pain level reported as 7 out of 10 and post-procedure pain level reported as 3 out of 10. I personally performed the entire procedure. Sam Tan MD Pain Management CC: Monster Rocha
[2019-08-21 09:33] VITALS: BP 131/77; PULSE 75; RESP 17; TEMP 36.8; O2SAT 98
[2019-08-21 10:08] VITALS: BP 144/88; PULSE 71; RESP 19; O2SAT 95
[2019-08-21] MEDS: Bupivacaine 0.5% Pres-Free 10 ML VIAL IJ (10:21)
[2019-08-21] MEDS: Omnipaque 240 MG/ML 50 ML BTL IJ (10:21)
== END 2019-08-21 09:33 ==
PROVIDERS: PCP Physician Assistant Medical; Visit Provider Internal Medicine
DX: M47.816 Spondylosis without myelopathy or radiculopathy, lumbar region (principal)
CPT/HCPCS: 64493; 64494; 72100; Q9967

== ENCOUNTER 2019-08-29 12:58 | Outpatient (CLI) | payer OTHER, SELFPAY ==
[2019-08-29 13:33] VITALS: BP 127/73; PULSE 86; RESP 18; TEMP 37.8; O2SAT 97
[2019-08-29 14:01] VITALS: BP 132/83; PULSE 86; RESP 20; O2SAT 96
--- NOTE | 2019-08-29 14:01 | PDOC.PAIN ---
Pain Clinic Procedure Note Procedure Note Procedure Note: Lumbar/Sacral Medial Branch Blocks #2 TOBIAS DAVIS has been referred to the [facility] for lumbar/sacral medial branch blocks. COMMENTS: She did great with her first LMBB DX: Lumbosacral spondylosis without myelopathy Patient was interviewed and the medical record reviewed. There were no medical, pharmacologic, radiographic or other structural contraindications to attempting fluoroscopically guided local anesthetic lumbar/sacral medial branch blocks. Risks and expected side effects as well as potential benefit of the procedure were reviewed and voiced concerns addressed. The printed consent form was signed and witnessed. Standard time-out procedure was performed. Patient was placed in the prone position on the fluoroscopy table and automated blood pressure cuff and pulse oximeter applied. The skin entry points for approaching the anatomic target points of the segmental medial branches of bilateral L3-L5DR were identified with anfluoroscopy and marked. Following thorough Chlorhexadine preparation of the skin and draping and 1% lidocaine infiltration of the skin entry points and subcutaneous tissues, a 22 gauge spinal needle was placed under fluoroscopic guidance down on to the target point for each respective segmental medial branch.Position was confirmed in A/P, oblique and lateral views with 0.25ml of omnipaque 240. At this point I injected 0.5 cc of 2% Lidocaine at each segmental nerve. Vital signs were stable throughout the procedure and were as recorded in the docflowsheet by the nursing staff. Follow up plans and appointments were discussed and was instructed to keep careful note of how the usual pain was modified by these injections. Specifically was asked to keep a pain diary for the next 24 hours using a numeric pain scale of 0-10 and report these results at the follow-up visit. Post procedure instruction was given as documented in the nursing documentation and having met discharge criteria. Patient was discharged from the [facility]. Based on the medial branches blocked today, if the patient has adequate relief and we are able to proceed to radiofrequency ablation, the treatment should result in the denervation of the bilateral L4-L5 and L5-S1 FACET JOINTS. We would expect to denervate a total of 4 facets during the radiofrequency ablation. COMMENTS: She will call back with her 1-4 post-procedure pain scores. CC: Monster Rocha
--- NOTE | 2019-08-29 14:02 | DI.RAD_ITS ---
EXAM: XR PAIN CLINIC LUMBAR SP 2V CLINICAL HISTORY: DX: LUMBAR SPONDYLOSIS TECHNIQUE: Realtime digital imaging was performed. COMPARISON: No exams were available for comparison FINDINGS: Fluoroscopy was utilized by Dr. Turner during the performance of a bilateral lumbar medial branch block . Please refer to the procedure report for complete details. Fluoro time is 46.4 seconds. DATA REPOSITORY: RADIATION DOSE DELIVERED:
[2019-08-29] MEDS: Lidocaine 2% Pres-Free 5 ML VIAL IJ (14:08)
[2019-08-29] MEDS: Omnipaque 240 MG/ML 50 ML BTL IJ (14:08)
== END 2019-08-29 13:18 ==
PROVIDERS: PCP Physician Assistant Medical; Visit Provider Preventive Medicine Occupational Medicine
DX: M47.817 Spondylosis without myelopathy or radiculopathy, lumbosacral region (principal)
CPT/HCPCS: 64493; 64494; 72100; Q9967

== ENCOUNTER 2019-11-25 10:26 | Outpatient (REF) | payer OTHER, SELFPAY ==
[2019-11-25 18:47] LABS: Bilirubin Negative (Negative); Blood Negative (Negative); Clarity Clear (Clear); Glucose Negative (Negative); Ketones Negative (Negative); Leukocyte Esterase Negative (Negative); Nitrite Negative (Negative); Specific Gravity >= 1.030 (1.005-1.025); Urobilinogen 0.2 EU/dL (Up TO 0.2); pH 5.5 (5-8)
[2019-11-25 18:58] LABS: Bacteria Few HPF (Negative); C & S Indicated? No/Sq. Contamination; Casts Negative LPF (Negative); Crystals Negative HPF (Negative); Epithelial Cells Many HPF (Negative); Mucus Negative (Negative); RBC 0-2 HPF (0-2); WBC >50 HPF (0-5)
== END 2019-11-25 10:46 ==
LOC: NCHCN 10:26
PROVIDERS: PCP Physician Assistant Medical; Visit Provider Nurse Practitioner Family
DX: R30.0 Dysuria (principal)
CPT/HCPCS: 81003; 81015

== ENCOUNTER 2019-11-26 02:35 | Outpatient (CLI) | payer OTHER, SELFPAY ==
--- NOTE | 2019-11-26 | DI.US_ITS ---
EXAM: US RENAL CLINICAL HISTORY: DYSURIA, PROTEINURIA, URINARY FREQUENCY, R30.0, R80.9 TECHNIQUE: Ultrasound performed using standard protocol. COMPARISON: US DI.USORA from 03/15/2018 FINDINGS: Kidneys are normal in size and shape. There is no evidence of renal mass, hydronephrosis, or nephrol ithiasis. Pre and postvoid urinary bladder volume is estimated 241 cc and 51 cc respectively. Ureteral jets are noted bilaterally. IMPRESSION: Negative renal ultrasound, no evidence of urinary tract obstruction. DATA REPOSITORY:
== END 2019-11-26 02:55 ==
PROVIDERS: PCP Physician Assistant Medical; Visit Provider Nurse Practitioner Family
DX: R30.0 Dysuria (principal); R80.9 Proteinuria, unspecified; R35.0 Frequency of micturition
CPT/HCPCS: 76770

== ENCOUNTER 2019-12-03 07:29 | Outpatient (CLI) | payer OTHER, SELFPAY ==
--- NOTE | 2019-12-03 06:00 | DI.RAD_ITS ---
EXAM: XR PAIN CLINIC LUMBAR SP 2V CLINICAL HISTORY: Dx: Lumbar Spondylosis TECHNIQUE: 2D and realtime digital imaging was performed. CONTRAST MATERIAL: Refer to procedure report. COMPARISON: No exams were available for comparison FINDINGS: Fluoroscopy was provided for Dr. Tan during the performance of a lumbar radiofrequency ablation. Ple ase refer to the procedure report for complete details. Fluoro time: 63.6 seconds IMPRESSION:
[2019-12-03 07:49] VITALS: BP 130/72; PULSE 72; RESP 16; TEMP 36.6; O2SAT 98
[2019-12-03] MEDS: fentaNYL 100 MCG/2 ML VIAL IVP ×3 (08:30→08:53)
[2019-12-03 09:06] VITALS: BP 155/86; PULSE 63; RESP 14; O2SAT 99
[2019-12-03] MEDS: methylPREDNISolone ACETATE 40 MG/ML VIAL IJ (09:09)
[2019-12-03] MEDS: Bupivacaine 0.5% Pres-Free 10 ML VIAL IJ (09:10)
[2019-12-03] MEDS: Lidocaine 1% Pres-Free 30 ML VIAL IJ (09:10)
[2019-12-03] MEDS: Lidocaine 2% Pres-Free 5 ML VIAL IJ (09:10)
--- NOTE | 2019-12-03 09:11 | PDOC.PAIN_ITS ---
Pain Clinic Procedure Note Procedure Note Procedure Note: Bilateral Lumbar Radiofrequency with Coolief Machine PROCEDURE NOTE Date of Service: December 03, 2019 Patient: TOBIAS DAVIS Provider: Sam Tan MD Pre Operative Diagnosis: lumbar spondylosis Post Operative Diagnosis: same as above PROCEDURE: Radiofrequency Ablation of medial branches - bilateral L3, L4, L5-DR TOBIAS DAVIS was brought into the fluoroscopy suite and positioned into the prone position on the fluoroscopy table and allowed to adjust to a position of comfort. A grounding pad was placed on the left upper back. The lumbar region was widely prepped with a chloraprep solution, allowed to air dry and draped in standard sterile surgical fashion. Local anesthesia was provided by 10mL of 1 % lidocaine delivered with a 25g needle. A 17g 100mm radiofrequency introducer needle was placed to the planned anatomic targets guided with intermittent fluoroscopy with a perpendicular approach to terminally place at the junction of the superior articular process and the transverse process of the bilateral L3, L4, L5-DR and the base of the sacral ala on the bilateral L5 medial branch nerve. The stylets were removed and radiofrequency probes with a 4mm active tip were then inserted. Needle tip position of the probes was verified in the AP, oblique, and lateral views. At each site, the medial branch nerve was stimulated at 2 Hz to a maximum 1-2 volts determined to finalize safe needle and electrode placement. The patient was awake and responsive during this portion of the procedure. Each target was anesthetized with 1 mL of 2% lidocaine for anesthesia for lesioning and then each target was lesioned at 80 degrees Celsius for 2 minutes and 30 seconds. Tissue impedences were noted to be between 250 and 500 Ohms. Electrodes and needles were then removed and bandages placed over the needle placement sites, the patient then returned to the supine position on a stretcher and transported to the recovery room without hemodynamic, neurologic, or allergic reactions. Fluoroscopic images were printed for hard copy recording and digitally archived. POST PROCEDURE EVALUATION: IMPRESSION: 1. Summary of procedure. Tolerated procedure well 2. Received total of 75mcg of IV Fentanyl. Patient has listed allergy to oral ativan which caused hallucinations, therefore IV versed was not used for IV anxiolysis 3. This Coolief radiofrequency ablation will result in the denervation of bilateral L4/5 and L5/S1 facets, a total of 4 facets 4. Patient received 40mg of depomedrol mixed with 2cc of 0.5% Bupivocaine post- lesioning to reduce likelihood of post-RF neuritis Follow up plans and appointments were discussed with the TOBIAS . Post procedure instruction was given as documented in nursing documentation and having met discharge criteria, TOBIAS was discharged from the [facility]. COMMENTS: No complications. F/U with our office as needed. I personally performed this entire procedure. Sam Tan MD Attending Physician
== END 2019-12-03 07:49 ==
PROVIDERS: PCP Physician Assistant Medical; Visit Provider Internal Medicine
DX: M47.816 Spondylosis without myelopathy or radiculopathy, lumbar region (principal)
CPT/HCPCS: 64635; 64636; 72100; J1030; J3010

== ENCOUNTER 2020-02-18 10:16 | Outpatient (CLI) | payer OTHER, SELFPAY ==
--- NOTE | 2020-02-18 06:00 | DI.RAD_ITS ---
EXAM: XR PAIN CLINIC SACRIOILIAC 2V CLINICAL HISTORY: Dx: Sacroiliac Joint Dysfunction TECHNIQUE: 2D and realtime digital imaging was performed. Fluoroscopy was provided in the OR COMPARISON: No exams were available for comparison FINDINGS: C-arm fluoroscopy was utilized by Dr. Tan during left SI joint injection. Hard copy shows needle plac ement and injection at the left SI joint. Fluoro time, 33.6 seconds. IMPRESSION: RADIATION DOSE DELIVERED: Total DLP
[2020-02-18 10:34] VITALS: BP 122/68; PULSE 73; RESP 16; TEMP 37.1; O2SAT 96
[2020-02-18] MEDS: Omnipaque 240 MG/ML 50 ML BTL IJ (11:10)
[2020-02-18] MEDS: Bupivacaine 0.5% Pres-Free 10 ML VIAL IJ (11:11)
[2020-02-18] MEDS: methylPREDNISolone ACETATE 80 MG/ML VIAL IJ (11:11)
[2020-02-18 11:19] VITALS: BP 145/84; PULSE 71; RESP 16; O2SAT 100
--- NOTE | 2020-02-18 16:10 | PDOC.PAIN_ITS ---
Pain Clinic Procedure Note Procedure Note Procedure Note: INTRA-ARTICULAR SI JOINT INJECTION Date of Service: February 18, 2020 Patient: TOBIAS GUERRERO Provider: Sam JARAMILLO MD COMMENTS: patient reports back pain improved after lumbar RFA. she has primarily lower back and buttock pain. Pre-operative diagnosis: disorder of sacrum Post-operative diagnosis: same as above TOBIAS GUERRERO has been referred to the [facility] for intra- articular SI joint injection. Ms Guerrero was interviewed and the medical record reviewed. There were no medical, pharmacologic, radiographic or other structural contraindications to attempting fluoroscopically guided intra-articular SI joint injection. Risks and expected side effects as well as potential benefit of the procedure were reviewed with TOBIAS , and her voiced concerns were addressed. The printed consent form was signed and witnessed. Standard time-out procedure was performed. TOBIAS was placed in the prone position on the fluoroscopy table and automated blood pressure cuff and pulse oximeter applied. The skin entry point for approaching the bilateral sacroiliac joint was identified under the most advantageous fluoroscopic view and marked. Following thorough Chlorhexadine preparation of the skin and draping and 1% lidocaine infiltration of the skin entry point and subcutaneous tissues, a 22 gauge spinal needle was placed under fluoroscopic guidance into the bilateral sacroiliac joint. Intra-articular placement was confirmed by a clear arthrogram resulting from the injection of 0.25ml Omnipaque 240. 2 ml 0.5% Bupivocaine and 80mg Depomedrol (40mg per side) was injected intra-articularily with an initial reproduction of a significant component of the usual pain. The needle was flushed with 0.5 cc of 1% Lidocaine and removed without difficulty. (49 cc of Omnipaque was wasted) TOBIAS [place] vital signs were stable throughout the procedure and were as recorded in the docflowsheet by the nursing staff. If given, dosages of intravenous drugs for anxiolysis and analgesia were documented in MAR. Follow up plans and appointments were discussed with the TOBIAS . Post procedure instruction was given as documented in nursing documentation and having met discharge criteria, TOBIAS was discharged from the [facility]. COMMENTS: No complications. F/U with Ms [place] APRN I personally performed this entire procedure. Sam Jaramillo MD ABPN-subspecialty board certification in Pain Medicine Attending Physician-Pain Management
== END 2020-02-18 10:36 ==
PROVIDERS: PCP Physician Assistant Medical; Visit Provider Internal Medicine
DX: M53.3 Sacrococcygeal disorders, not elsewhere classified (principal)
CPT/HCPCS: 27096; 72200; J1040; Q9967

== ENCOUNTER 2020-06-11 21:14 | Outpatient (REF) | payer OTHER, SELFPAY | END 2020-06-11 21:34 | LOC: LBN 21:14 | PROVIDERS: PCP Physician Assistant Medical; Visit Provider Physician Assistant Medical | DX: R30.0 Dysuria (principal) | CPT/HCPCS: 87086 ==

== ENCOUNTER 2020-06-22 15:58 | Outpatient (REF) | payer OTHER, SELFPAY ==
[2020-06-22 19:48] LABS: ALT 32 U/L (14-59); AST 23 U/L (15-37); Albumin 4.2 g/dL (3.4-5.0); Alkaline Phosphatase 82 U/L (46-116); Anion Gap 6.6 mmol/L (3-11); BUN 14 mg/dL (7-18); Bilirubin, Total 0.3 mg/dL (0.2-1.0); CO2 28.4 mmol/L (21.0-32.0); CREATININE 0.97 mg/dL (0.55-1.02); Calculated LDL 127 mg/dL (<100); Chloride 103 mmol/L (98-107); Cholesterol 239 mg/dL (<200); Estimated GFR 57.82 (mL/min/1.73m2); Glucose 101 mg/dL (74-106); HDL Cholesterol 52 mg/dL (40-60); Potassium 4.3 mmol/L (3.5-5.1); Sodium 138 mmol/L (136-145); Total Protein 7.3 g/dL (6.4-8.2); Triglyceride 302 mg/dL (<150)
== END 2020-06-22 16:18 ==
LOC: NCHCN 15:58
PROVIDERS: PCP Physician Assistant Medical; Visit Provider Physician Assistant Medical
DX: I10 Essential (primary) hypertension (principal); R73.03 Prediabetes
CPT/HCPCS: 80053; 80061

== ENCOUNTER 2020-08-21 03:11 | Outpatient (CLI) | payer OTHER, SELFPAY ==
--- NOTE | 2020-08-21 08:37 | DI.RAD_ITS ---
EXAM: XR THORACIC SPINE COMPLETE CLINICAL HISTORY: CHRONIC BACK PAIN, M54.89. TECHNIQUE: 2D digital imaging was performed. COMPARISON: No exams were available for comparison FINDINGS: BONES: There is no fracture or destructive lesion. The vertebral bodies and posterior elements are un remarkable. Hardware is seen in the lower cervical spine. DISKS:Alignment is within normal limits. Interverebral disc spaces are maintained. There are minimal endplate osteophytes in the midthoracic region. SOFT TISSUE: Visualized lungs are clear. Heart size is normal. IMPRESSION: Minimal degenerative changes. DATA REPOSITORY: RADIATION DOSE DELIVERED:
== END 2020-08-21 03:12 ==
LOC: DI 03:11
PROVIDERS: PCP Physician Assistant Medical; Visit Provider Physician Assistant Medical
DX: M51.34 Other intervertebral disc degeneration, thoracic region (principal); M54.6 Pain in thoracic spine
CPT/HCPCS: 72072

== ENCOUNTER 2020-09-09 19:48 | Outpatient (REF) | payer OTHER, SELFPAY ==
[2020-09-11 13:14] LABS: COVID-19 RT-PCR UVMMC Result Positive (Negative)
== END 2020-09-09 19:49 | disposition home or self-care (01) ==
LOC: NCHCN 19:48
PROVIDERS: PCP Physician Assistant Medical; Visit Provider Physician Assistant Medical
DX: Z20.822 Contact with and (suspected) exposure to COVID-19 (principal); J06.9 Acute upper respiratory infection, unspecified
CPT/HCPCS: U0003

== ENCOUNTER 2020-09-11 05:21 | Outpatient (CLI) | payer OTHER, SELFPAY ==
[2020-09-11 11:55] VITALS: BP 139/84; PULSE 96; RESP 16; TEMP 36.3; O2SAT 100
[2020-09-11] MEDS: Normal Saline Flush 10 ML SYR IVP (12:39)
[2020-09-11] MEDS: Normal Saline 500 ML 30 ML IV (12:40)
[2020-09-11 12:48] VITALS: BP 146/88; PULSE 81; RESP 18; TEMP 37.2; O2SAT 97
[2020-09-11 13:14] VITALS: BP 137/84; PULSE 87; RESP 18; TEMP 37.2; O2SAT 97
[2020-09-11 13:35] VITALS: BP 153/87; PULSE 76; RESP 16; TEMP 36.9; O2SAT 98
[2020-09-11 14:05] VITALS: BP 130/84; PULSE 79; RESP 20; TEMP 36.9; O2SAT 98
[2020-09-11 14:35] VITALS: BP 133/86; PULSE 82; RESP 18; TEMP 36.8; O2SAT 98
== END 2020-09-11 05:22 | disposition home or self-care (01) ==
LOC: INF 05:22
PROVIDERS: PCP Physician Assistant Medical; Visit Provider Family Medicine
DX: U07.1 COVID-19 (principal)
CPT/HCPCS: 96365

== ENCOUNTER 2020-10-15 02:22 | Outpatient (CLI) | payer OTHER, SELFPAY ==
--- NOTE | 2020-10-15 | DI.MAMMO_ITS ---
EXAM: MG MAMMO SCREENING CLINICAL HISTORY: SCREENING, HEALTH MAINTENANCE,Z00.8. TECHNIQUE: Bilateral full field digital CC and MLO mammographic images were obtained with 3D tomosyn thesis and utilizing computer aided detection (CAD). COMPARISON: Prior mammograms dating back to 2011, the most recent being May 2017. FINDINGS: Fibroglandular tissue is again noted be dense, this decreasing the sensitivity of the mammogram for f inding hidden underlying lesions. There are no new obvious spiculated masses nor new malignant-appearing microcalcification groups. A few benign appearing microcalcification groups in both breasts are again noted. There is no significant architectural distortion nor skin thickening-retraction. IMPRESSION: Dense bilateral fibroglandular tissue. Stable benign mammographic findings. No obvious radiographic evidence of malignancy. Given the density of this patient's fibroglandular tissue and family history it may be prudent to per form bilateral screening breast ultrasound. BI-RADS Category 2 - Benign Findings Breast Density - Category D - Extremely dense Breast density Category C or D implies that the patient has dense breast tissue. Dense breast tissue can make it harder to find cancer on a mammogram. Dense breast tissue is also associated with an incr eased risk of breast cancer. This information about the result of the mammogram report was provided to the patient to raise their awareness. Use this report when you speak with the patient about their risks for breast cancer, which includes their family history. At that time, you may recommend additional screening tests (Ultrasoun d or MRI) as these tests may add significant information. A negative radiographic report should not delay biopsy if a dominant or clinically suspicious mass is present. Up to ten percent of cancers are not identified on mammography. A negative report may reinforce clinical impression. Adenosis and dense breasts may obscure an underlying neoplasm. False positive reports average 6 to 10%. Patient will receive a letter notifying them of these results.
== END 2020-10-15 02:42 ==
PROVIDERS: PCP Physician Assistant Medical; Visit Provider Physician Assistant Medical
DX: Z12.31 Encounter for screening mammogram for malignant neoplasm of breast (principal); Z80.3 Family history of malignant neoplasm of breast
CPT/HCPCS: 77063; 77067

== ENCOUNTER 2021-08-11 15:16 | Outpatient (REF) | payer OTHER, SELFPAY ==
[2021-08-11 21:39] LABS: ALT 19 U/L (14-59); AST 12 U/L (15-37); Albumin 4.1 g/dL (3.4-5.0); Alkaline Phosphatase 93 U/L (46-116); Anion Gap 7.3 mmol/L (3-11); BUN 17 mg/dL (7-18); Bilirubin, Total 0.3 mg/dL (0.2-1.0); CO2 29.7 mmol/L (21.0-32.0); CREATININE 0.9 mg/dL (0.55-1.02); Calcium 9.4 mg/dL (8.5-10.1); Calculated LDL 131 mg/dL (<100); Chloride 105 mmol/L (98-107); Cholesterol 223 mg/dL (<200); Glucose 83 mg/dL (74-106); HDL Cholesterol 59 mg/dL (40-60); Potassium 4.3 mmol/L (3.5-5.1); Sodium 142 mmol/L (136-145); TSH (W/Ref FT4) 0.59 uIU/mL (0.36-3.74); Total Protein 7.2 g/dL (6.4-8.2); Triglyceride 169 mg/dL (<150)
[2021-08-11 21:53] LABS: Hemoglobin A1C 5.9 % (<5.7)
== END 2021-08-11 15:17 | disposition home or self-care (01) ==
LOC: NCHCN 15:16
PROVIDERS: PCP Physician Assistant Medical; Visit Provider Physician Assistant Medical
DX: I10 Essential (primary) hypertension (principal); R73.03 Prediabetes; Z00.8 Encounter for other general examination
CPT/HCPCS: 80053; 80061; 83036; 84443

== ENCOUNTER 2024-10-24 11:25 | Outpatient (REF) | payer OTHER, SELFPAY | END 2024-10-24 11:26 | disposition home or self-care (01) | LOC: LBN 11:25 | PROVIDERS: PCP Physician Assistant Medical; Visit Provider Nurse Practitioner Gerontology | DX: N39.0 Urinary tract infection, site not specified (principal) | CPT/HCPCS: 87086 ==